=== PATIENT | male | born 1990 | race Hispanic/Latino ===

== ENCOUNTER 2017-03-25 01:15 | Emergency (ER) | payer SELFPAY | END 2017-03-25 02:51 | disposition home or self-care (01) | LOC: ERS 01:15 | DX: J20.9 Acute bronchitis, unspecified (principal); H66.91 Otitis media, unspecified, right ear | CPT/HCPCS: 99283 ==

== ENCOUNTER 2017-07-31 23:20 | Emergency (ER) | payer SELFPAY | END 2017-08-01 00:10 | disposition home or self-care (01) | LOC: ERS 23:20 | DX: L03.213 Periorbital cellulitis (principal); L91.0 Hypertrophic scar; F17.220 Nicotine dependence, chewing tobacco, uncomplicated | CPT/HCPCS: 99283 ==

== ENCOUNTER 2018-06-07 14:39 | Emergency (ER) | payer SELFPAY | END 2018-06-07 16:56 | disposition home or self-care (01) | LOC: ERS 14:39 | DX: L25.5 Unspecified contact dermatitis due to plants, except food (principal); Z87.891 Personal history of nicotine dependence | CPT/HCPCS: 99282 ==